=== PATIENT | male | born 1960 | race Caucasian/White ===

== ENCOUNTER 2021-01-18 10:40 | Inpatient (IN) | payer MEDICARE, OTHER ==
[~2021-01-18] VITALS: Ht 165.1 cm; Wt 64.0 kg
[2021-01-18] MEDS ORDERED: LISINOPRIL-HCT1 EAC2 PO (10:58)
--- NOTE | 2021-01-18 22:33 | NUR ---
ASSESSMENT, VS AND I&O COMPLETED. GCS 15, A&O X4. PT HAS TREMORS, CHRONIC. LUNGS CLEAR, HEART TONES REGULAR. ABD SOFT, NONTENDER, PT STATES NORMAL, BOWEL TONES ACTIVE. CMS INTACT. SKIN HAS SCATTERED ABRASIONS IN VARIOUS STAGES OF HEALING. PT DENIES PAIN. IV WNL, CDI, FLUSHED WELL. IV FLUIDS INFUSING PER ORDER. NO OTHER NEEDS AT THIS TIME. RAILS UP, BED ALARM ON, CALL LIGHT IN REACH.
--- NOTE | 2021-01-19 00:52 | NUR ---
in to check on pt, pt inct of urine at this time, new attends and chux in place, rn assist with new gown, pt declines water at this time, no further needs
--- NOTE | 2021-01-19 02:26 | NUR ---
ASSESSMENT, VS AND I&O COMPLETED. GCS 15, A&O TO PERSON AND PLACE. BRIEFS CHANGED. NEW BAG IV FLUIDS PROVIDED. LUNGS CLEAR IN UPPER LOBES, CRACKLES IN LOWER LOBES. HEART TONES REGULAR. ABD SOFT, NONTENDER, BOWEL TONES ACTIVE, PT DENIES BLOATING. CMS INTACT. SKIN HAS SCATTERED ABRASIONS ON BLE. IV WNL, IV FLUIDS INFUSING. PT DENIES PAIN. NO OTHER NEEDS AT THIS TIME. CALL LIGHT IN REACH, BED ALARM ON.
--- NOTE | 2021-01-19 04:00 | NUR ---
PT RESTING IN BED, EYES CLOSED. RR EVEN, UNLABORED. CALL LIGHT IN REACH.
--- NOTE | 2021-01-19 05:02 | NUR ---
VS AND I&O COMPLETED. PT DECLINES A DRINK. NO OTHER NEEDS AT THIS TIME. CALL LIGHT IN REACH.
--- NOTE | 2021-01-19 07:15 | NUR ---
TOOK REPORT ON PT. PT IN ROOM WAITING FOR BREAKFAST.
--- NOTE | 2021-01-19 09:00 | NUR ---
PT IN ROOM WATCHING TV WITH FAMILY. BED RAILS IN UP POSITION. CALL LIGHT IN REACH.
--- NOTE | 2021-01-19 09:20 | NUR ---
INTO PATIENT ROOM, CASE MANAGEMENT ASSESSMENT COMPLETED. PATIENT SISTER JEF JOSE CARLOS AT BEDSIDE TO HELP ANSWER QUESTIONS. JEF IS THE PATIENT PRIMARY CONTACT [phone] AND IS WORKING ON ESTABLISHING A POA. PATIENT CURRENTLY RESIDES AT [facility], WHICH IS AN ASSISTED LIVING FACILITY. PATIENT SISTER STATES THE CARE AT THE CURRENT FACILITY IS GREAT AND FEELS PATIENT WOULD BE SAFE TO RETURN LONG HE REMAINS AT THE SAME LEVEL OF CARE. PATIENT DOES REQUIRE A WALKER FOR MOBILITY, WHICH HE HAS AT HOME. PATIENT IS DOUBLE COVERED BY INSURANCE AND IS ESTABLISHED WITH DR. TUCKER. I ADVISE PATIENT AND SISTER THAT CASE MANAGEMENT WILL CONTINUE TO CHECK IN ON THE PATIENT DURING HIS STAY TO ASSIST IF NEEDED.
--- NOTE | 2021-01-19 12:02 | NUR ---
PT IN ROOM WITH FAMILY. DENIES NEEDS AT THIS TIME. PT HAS CALL LIGHT. BED RAILS UP FOR SAFTEY.
[2021-01-19] MEDS ORDERED: CEFPODOXIME PR200 MG PO (13:55)
[2021-01-19] MEDS ORDERED: LISINOPRIL10 MG PO (13:55)
--- NOTE | 2021-01-19 14:21 | NUR ---
PT HAD LARGE BM. PT CLEANED. FREDERIC CARE PROVIDED. PT'S BEDDING CHANGED. CALL LIGHT IN REACH. BED RAILS IN UP POSITION.
[2021-01-19] MEDS ORDERED: ALA-CORT28.4 GM TOP (14:40)
[2021-01-19] MEDS ORDERED: ANTACID PLUS A355 M1 PO (14:41)
[2021-01-19] MEDS ORDERED: BETAMETHASONE V15 GM TOP (14:43)
[2021-01-19] MEDS ORDERED: TYLENOL EXTRA500 MG PO (14:44)
[2021-01-19] MEDS ORDERED: TRIPLE ANTIBIO1 EACH TOP (14:44)
--- NOTE | 2021-01-19 14:46 | NUR ---
MED REC COMPLETE
--- NOTE | 2021-01-19 17:30 | NUR ---
PT HAD 1 LARGE LOOSE BM AND 4 EPISODES OF A LARGE AMOUNT OF INCONTINENCE IN HIS ATTEND. PT HAD HIS SISTER IN ROOM FOR MOST OF THE DAY AND WATCHED BASEBALL. PT'S BEDDING WAS CHANGED TODAY.
--- NOTE | 2021-01-19 19:44 | NUR ---
SHIFT REPORT RECEIVED FROM FROM CAROLYN GARCÍA. PT RESTING IN BED. SISTER IN ROOM. NO NEEDS AT THIS TIME.
--- NOTE | 2021-01-19 20:50 | NUR ---
ASSESSMENT, VS AND I&O COMPLETED. BRIEFS CHANGED. SODA PROVIDED PRE PT REQUEST. IV WNL, CDI, FLUSHED WELL, IV FLUIDS INFUSING PER ORDER. LUNGS CLEAR IN UPPER LOBES, CRACKLES IN LOWER LOBES. HEART TONES REGULAR. ABD SOFT, NONTENDER, BOWEL TONES ACTIVE. CMS INTACT. SCABS NOTED ON BLE. RAILS UP, BED ALARM ON, CALL LIGHT IN REACH, DOOR OPEN.
--- NOTE | 2021-01-19 23:00 | NUR ---
PT CALLS OUT FROM ROOM. BRIEFS CHANGED. PT AGITATED WITH STAFF DURING BRIEF CHANGE. NO OTHER NEEDS AT THIS TIME. CALL LIGHT IN REACH, DOOR OPEN, BED ALARM ON.
--- NOTE | 2021-01-20 01:32 | NUR ---
PT RESTING IN BED, EYES CLOSED. RR EVEN, UNLABORED. CALL LIGHT IN REACH, DOOR OPEN, BED ALARM ON.
--- NOTE | 2021-01-20 02:23 | NUR ---
PT CALLS OUT FOR "HELP", BRIEFS CHANGED. IV WNL, WRAPPED WITH TOWEL AND COBAN.GCS 15, PT IRRITATED WITH BRIEF CHANGE. LUNGS CLEAR IN UPPER LOBES, DIMINISHED IN LOWER LOBES. HEART TONES REGULAR. ABD SOFT, NONTENDER, BOWEL TONES ACTIVE. CMS INTACT. ASSESSMENT COMPLETED. BED RAILS UP, BED ALARM ON, DOOR OPEN.
--- NOTE | 2021-01-20 06:44 | NUR ---
NVS AND I&O COMPLETED. BRIEFS CHANGED. NO OTHER NEEDS. RAILS UP, BED ALARM ON, CALL LIGHT IN REACH.
--- NOTE | 2021-01-20 06:58 | NUR ---
TOOK REPORT FROM MADALYN GARCÍA. PT IN ROOM LAYING DOWN.
--- NOTE | 2021-01-20 08:07 | NUR ---
PT HAD LARGE WET ATTEND AND LOOSE BM. FREDERIC CARE PERFORMED.
--- NOTE | 2021-01-20 09:26 | NUR ---
PT'S SISTER CALLED FOR TRANSPORT HOME. REPORT CALLED TO PT'S FACILITY.
== END 2021-01-20 10:10 | disposition home or self-care (01) | DRG 682 ==
LOC: ED 10:40 → MS 18:30
PROVIDERS: ADMIT Internal Medicine; ATTEND Internal Medicine
DX: N17.9 Acute kidney failure, unspecified (principal); J18.9 Pneumonia, unspecified organism; G10 Huntington's disease; Z20.822 Contact with and (suspected) exposure to COVID-19; I10 Essential (primary) hypertension; E87.5 Hyperkalemia; Z66 Do not resuscitate; Z79.899 Other long term (current) drug therapy
CPT/HCPCS: 36415; 51701; 71045; 76770; 80048; 80053; 81001; 83605; 83690; 83735; 85025; 87040; 96368; 99285-25; C9803; J0456; J0696; J1650; J7030; J7060; U0003

== ENCOUNTER 2021-09-29 14:59 | Emergency (ER) | payer MEDICARE, OTHER ==
[~2021-09-29] VITALS: Ht 165.1 cm; Wt 64.0 kg
[~2021-09-29 14:59] MED LIST: ALA-CORT28.4 GM TOP; ANTACID PLUS A355 M1 PO; BETAMETHASONE V15 GM TOP; CEFPODOXIME PR200 MG PO; LISINOPRIL-HCT1 EAC2 PO; LISINOPRIL10 MG PO; TRIPLE ANTIBIO1 EACH TOP; TYLENOL EXTRA500 MG PO
[2021-09-29] MEDS ORDERED: HYDROCHLOROTHIA25 MG PO (15:34)
[2021-09-29] MEDS ORDERED: TETRABENAZINE25 MG PO (15:35)
== END 2021-09-29 20:13 | disposition home or self-care (01) ==
LOC: ED 14:59
DX: G10 Huntington's disease (principal); I10 Essential (primary) hypertension; Z79.899 Other long term (current) drug therapy
CPT/HCPCS: 71045; 80053; 81001; 85025; 99282-25; U0003